=== PATIENT | female | born 1960 | race Two or more races ===

== ENCOUNTER 2018-01-22 13:00 | Outpatient (CLI) | payer OTHER | END 2018-01-22 13:07 | disposition home or self-care (01) | LOC: RAD 13:00 | DX: Z11.1 Encounter for screening for respiratory tuberculosis (principal); R76.8 Other specified abnormal immunological findings in serum ==

== ENCOUNTER 2020-09-24 09:05 | Outpatient (CLI) | payer OTHER | END 2020-09-24 09:13 | disposition home or self-care (01) | LOC: RAD 09:05 | DX: Z11.1 Encounter for screening for respiratory tuberculosis (principal); M48.8X6 Other specified spondylopathies, lumbar region ==

== ENCOUNTER 2021-03-19 08:00 | Outpatient (CLI) | payer OTHER | END 2021-03-19 08:30 | disposition home or self-care (01) | LOC: PPH VACUNA 08:00 | PROVIDERS: ATTEND Emergency Medicine Pediatric Emergency Medicine | DX: Z23 Encounter for immunization (principal) ==

== ENCOUNTER 2021-08-03 12:16 | Outpatient (CLI) | payer OTHER | END 2021-08-03 13:04 | disposition home or self-care (01) | LOC: MAMO-SONO 12:16 | PROVIDERS: ATTEND Obstetrics & Gynecology | DX: N63.10 Unspecified lump in the right breast, unspecified quadrant (principal); N63.20 Unspecified lump in the left breast, unspecified quadrant; Z12.31 Encounter for screening mammogram for malignant neoplasm of breast; N64.4 Mastodynia; C50.919 Malignant neoplasm of unspecified site of unspecified female breast ==

== ENCOUNTER 2021-08-19 09:25 | Outpatient (CLI) | payer OTHER | END 2021-08-19 09:34 | disposition home or self-care (01) | LOC: RAD 09:25 | PROVIDERS: ATTEND General Practice | DX: M25.561 Pain in right knee (principal); M25.562 Pain in left knee ==

== ENCOUNTER 2021-10-12 08:00 | Outpatient (CLI) | payer OTHER | END 2021-10-12 08:30 | disposition home or self-care (01) | LOC: PPH VACUNA 08:00 | PROVIDERS: ATTEND Emergency Medicine Pediatric Emergency Medicine | DX: Z23 Encounter for immunization (principal) ==

== ENCOUNTER 2021-10-13 09:10 | Outpatient (CLI) | payer OTHER | END 2021-10-13 09:20 | disposition home or self-care (01) | LOC: RAD 09:10 | PROVIDERS: ATTEND General Practice | DX: R76.11 Nonspecific reaction to tuberculin skin test without active tuberculosis (principal); Z11.1 Encounter for screening for respiratory tuberculosis ==

== ENCOUNTER 2022-03-02 09:47 | Outpatient (CLI) | payer OTHER | END 2022-03-02 09:57 | disposition home or self-care (01) | LOC: PPH VACUNA 09:47 | PROVIDERS: ATTEND Emergency Medicine Pediatric Emergency Medicine | DX: Z23 Encounter for immunization (principal) ==

== ENCOUNTER 2022-03-03 09:15 | Outpatient (CLI) | payer OTHER | END 2022-03-03 09:17 | disposition home or self-care (01) | LOC: NUCLEAR 09:15 | PROVIDERS: ATTEND General Practice | DX: Z13.820 Encounter for screening for osteoporosis (principal); M81.0 Age-related osteoporosis without current pathological fracture; I73.9 Peripheral vascular disease, unspecified ==

== ENCOUNTER → 2022-03-04 | Outpatient (CLI) | payer OTHER | END | disposition home or self-care (01) | LOC: NUCLEAR 09:39 | PROVIDERS: ATTEND General Practice | DX: I73.9 Peripheral vascular disease, unspecified (principal) ==

== ENCOUNTER 2022-08-04 07:07 | Outpatient (CLI) | payer OTHER | END 2022-08-04 07:24 | disposition home or self-care (01) | LOC: MAMO-SONO 07:07 | PROVIDERS: ATTEND General Practice | DX: Z12.31 Encounter for screening mammogram for malignant neoplasm of breast (principal); I10 Essential (primary) hypertension; R10.84 Generalized abdominal pain ==

== ENCOUNTER → 2022-10-03 | Outpatient (CLI) | payer OTHER | END | disposition home or self-care (01) | LOC: RAD 13:46 | PROVIDERS: ATTEND General Practice | DX: Z11.1 Encounter for screening for respiratory tuberculosis (principal); R76.11 Nonspecific reaction to tuberculin skin test without active tuberculosis ==